=== PATIENT | male | born 1995 | race Caucasian/White ===

== ENCOUNTER 2020-02-09 04:10 | Emergency (ER) | payer SELFPAY ==
[~2020-02-09] VITALS: Ht 167.6 cm; Wt 83.9 kg
[2020-02-09 04:11] VITALS: BP 131/84
--- NOTE | 2020-02-09 04:30 | NUR ---
PATIENT BIB [employer] [employer]. PATIENT EXAMINED BY . PATIENT MEDICALLY CLEARED AND RELEASED IN CUSTODY IN STABLE CONDITION. ORIGINAL PRE-BOOK FORM GIVEN TO OFFICER [facility], [facility][id number].
== END 2020-02-09 04:30 ==
LOC: EDSEX 04:10 → MED 04:10
DX: Z04.1 Encounter for examination and observation following transport accident (principal); Z02.89 Encounter for other administrative examinations
CPT/HCPCS: 99283